=== PATIENT | female | born 1960 | race Caucasian/White ===

== ENCOUNTER 2017-08-02 10:30 | Outpatient (CLI) | payer OTHER | END 2017-08-02 11:00 | disposition home or self-care (01) | LOC: NUCLEAR 10:30 | DX: Z85.3 Personal history of malignant neoplasm of breast (principal); C79.51 Secondary malignant neoplasm of bone | CPT/HCPCS: 78306; A9503 ==

== ENCOUNTER 2017-10-12 11:16 | Outpatient (CLI) | payer OTHER | END 2017-10-12 16:18 | disposition home or self-care (01) | LOC: NUCLEAR 11:16 | DX: C73 Malignant neoplasm of thyroid gland (principal); E89.0 Postprocedural hypothyroidism | CPT/HCPCS: 79005; A9517 ==

== ENCOUNTER 2017-10-16 07:29 | Outpatient (CLI) | payer OTHER | END 2017-10-16 08:30 | disposition home or self-care (01) | LOC: NUCLEAR 07:29 | DX: C73 Malignant neoplasm of thyroid gland (principal); E89.0 Postprocedural hypothyroidism ==

== ENCOUNTER → 2018-08-01 | Outpatient (CLI) | payer OTHER | END | disposition home or self-care (01) | LOC: NUCLEAR 07-26 10:00 | DX: Z85.3 Personal history of malignant neoplasm of breast (principal) | CPT/HCPCS: 78306; A9503 ==